=== PATIENT | female | born 1980 | race Caucasian/White ===

== ENCOUNTER 2018-09-04 10:55 | Inpatient (IN) | payer MEDICAID ==
[~2018-09-04 10:55] MED LIST: EPHEDrine 25 MG/5 ML SYG; PHENYLephrine (100 MCG/ML) 10ML SYG
[2018-09-04] MEDS ORDERED: LACTATED RINGER'S 1,000 ML IV (11:08)
[2018-09-04] MEDS ORDERED: CARBOPROST 250 MCG INJ IM ×3 (11:30→16:30)
[2018-09-04] MEDS ORDERED: OXYTOCIN 30 UNITS/LR 500 ML IV ×4 (11:30→16:30)
[2018-09-04] MEDS ORDERED: CEFAZOLIN 2 GM/50 ML (PMX) 50 ML IVPB ×2 (11:30)
[2018-09-04] MEDS ORDERED: METHYLERGONOVINE 0.2 MG INJ IM ×3 (11:30→16:30)
[2018-09-04] MEDS ORDERED: MISOPROSTOL 200 MCG TAB PR ×3 (11:30→16:30)
[2018-09-04 11:35] LABS: ADD MAN DIFF? NO
[2018-09-04] MEDS: LACTATED RINGER'S 1,000 ML IV ×2 (11:36→16:35)
[2018-09-04 11:43] LABS: BASOPHIL # 0.1 10^3/ul (0.0-0.1); BASOPHILS % 0.3 % (0.0-2.0); HEMATOCRIT 40.6 % (37.0-47.0); HEMOGLOBIN 14.3 g/dl (12.0-16.0); LYMPHOCYTES # 1.2 10^3/ul (0.8-2.9); LYMPHOCYTES % 6.2 % (15.0-51.0); MEAN CORPUSCULAR HEMOGLOBIN 31.8 pg (29.0-33.0); MEAN CORPUSCULAR HGB CONC 35.2 g/dl (32.0-37.0); MEAN CORPUSCULAR VOLUME 90.4 fl (82.0-101.0); MEAN PLATELET VOLUME 11.2 fl (7.4-10.4); MONOCYTE # 0.8 10^3/ul (0.3-0.9); NEUTROPHIL # 16.8 10^3/ul (1.6-7.5); NEUTROPHILS % 89.1 % (39.0-77.0); PLATELET COUNT 245 10^3/UL (140-415); RED BLOOD COUNT 4.49 10^6/ul (4.20-5.40); RED CELL DISTRIBUTION WIDTH 12.3 % (11.5-14.5)
[2018-09-04 11:43] LABS: WHITE BLOOD COUNT 18.8 10^3/ul (4.8-10.8)
[2018-09-04 11:56] LABS: INR 0.89; PROTIME 12.1 Sec (11.9-14.9); PT RATIO 0.9
[2018-09-04 11:57] LABS: PARTIAL THROMBOPLASTIN TIME 23.7 Sec (23.0-35.0)
[2018-09-04] MEDS ORDERED: morphine SULFATE/PF (10 MG/10 ML) INJ (12:02)
[2018-09-04] MEDS ORDERED: ONDANSETRON 4 MG INJ ×2 (12:13→15:39)
[2018-09-04] MEDS ORDERED: METOCLOPRAMIDE 10 MG INJ (12:14)
[2018-09-04] MEDS ORDERED: OXYTOCIN 10 UNIT INJ (12:20)
[2018-09-04] MEDS ORDERED: MIDAZOLAM 1 MG/ML 2 ML INJ (12:21)
[2018-09-04 12:27] LABS: HEPATITIS B SURFACE ANTIGEN NEGATIVE (NEGATIVE)
[2018-09-04] MEDS: OXYTOCIN 30 UNITS/LR 500 ML IV ×2 (13:05→18:51)
[2018-09-04 13:29] LABS: HIV 1&2 ANTIBODY NEGATIVE (NEGATIVE)
[2018-09-04] MEDS ORDERED: MEPERIDINE 25 MG INJ IV (13:30)
[2018-09-04] MEDS ORDERED: MIDAZOLAM 1 MG/ML 2 ML INJ IV (13:30)
[2018-09-04] MEDS ORDERED: DIPHENHYDRAMINE 50 MG INJ IV (13:30)
[2018-09-04 14:49] LABS: AMPHETAMINE/METHAMPHETAMINE Negative (NEGATIVE); BARBITURATES Negative (NEGATIVE); BENZODIAZEPINES Negative (NEGATIVE); CANNABINOIDS Negative (NEGATIVE); COCAINE Negative (NEGATIVE); OPIATES Negative (NEGATIVE)
[2018-09-04 15:23] LABS: RAPID PLASMA REAGIN NONREACTIVE (NR)
[2018-09-04] MEDS: KETOROLAC 30 MG INJ IV (16:14)
[2018-09-04] MEDS: ONDANSETRON 4 MG INJ IV (16:15)
[2018-09-04] MEDS ORDERED: KETOROLAC 30 MG INJ IV (16:30)
[2018-09-04] MEDS ORDERED: KETOROLAC 60 MG INJ IM (16:30)
[2018-09-04] MEDS ORDERED: KETOROLAC 15 MG INJ IV (16:30)
[2018-09-04] MEDS ORDERED: NACL 0.9% 3 ML SYG IV (16:30)
[2018-09-04] MEDS ORDERED: NALOXONE (0.4 MG/ML) INJ IV (16:30)
[2018-09-04] MEDS ORDERED: OXYCODONE/ACETAMINOPHEN (5/325) TAB PO (16:30)
[2018-09-04] MEDS ORDERED: IBUPROFEN 600 MG TAB PO (18:00)
[2018-09-04] MEDS: SENNA/DOCUSATE NA (8.6MG/50MG) TAB PO (21:00)
[2018-09-04] MEDS: CEFAZOLIN 2 GM/50 ML (PMX) 50 ML IVPB (21:29)
[2018-09-05] MEDS: KETOROLAC 30 MG INJ IV ×3 (00:05→12:05)
[2018-09-05] MEDS: CEFAZOLIN 2 GM/50 ML (PMX) 50 ML IVPB ×2 (04:51→13:33)
[2018-09-05] MEDS: LACTATED RINGER'S 1,000 ML IV (05:50)
[2018-09-05 08:09] LABS: ADD MAN DIFF? NO
[2018-09-05 08:18] LABS: BASOPHILS % 0.2 % (0.0-2.0); EOSINOPHILS % 0.1 % (0.0-7.0); HEMATOCRIT 32.7 % (37.0-47.0); HEMOGLOBIN 11.4 g/dl (12.0-16.0); LYMPHOCYTES # 1.4 10^3/ul (0.8-2.9); MEAN CORPUSCULAR HEMOGLOBIN 32.1 pg (29.0-33.0); MEAN CORPUSCULAR HGB CONC 34.9 g/dl (32.0-37.0); MEAN CORPUSCULAR VOLUME 92.1 fl (82.0-101.0); MEAN PLATELET VOLUME 11.7 fl (7.4-10.4); MONOCYTES % 5.3 % (0.0-11.0); NEUTROPHIL # 15.4 10^3/ul (1.6-7.5); PLATELET COUNT 189 10^3/UL (140-415); RED BLOOD COUNT 3.55 10^6/ul (4.20-5.40); RED CELL DISTRIBUTION WIDTH 12.3 % (11.5-14.5)
[2018-09-05 08:18] LABS: WHITE BLOOD COUNT 17.9 10^3/ul (4.8-10.8)
[2018-09-05] MEDS: SENNA/DOCUSATE NA (8.6MG/50MG) TAB PO ×2 (09:17→21:18)
[2018-09-05] MEDS: IBUPROFEN 600 MG TAB PO ×2 (17:32→23:58)
[2018-09-05 18:07] LABS: RHOGAM PROFILE 1 1
[2018-09-06] MEDS: IBUPROFEN 600 MG TAB PO ×4 (06:23→23:30)
[2018-09-06] MEDS: SENNA/DOCUSATE NA (8.6MG/50MG) TAB PO ×2 (09:38→21:13)
[2018-09-06 14:57] LABS: RUBELLA ANTIBODY - IGM <20.00 AU/mL
[2018-09-07] MEDS: IBUPROFEN 600 MG TAB PO ×2 (05:42→11:12)
[2018-09-07] MEDS: SENNA/DOCUSATE NA (8.6MG/50MG) TAB PO (08:42)
[2018-09-07] MEDS: DIPHTH/TET/ACEL PERTUSS (ADULT) 0.5 ML VIAL IM* (11:50)
== END 2018-09-07 14:05 | disposition home or self-care (01) | DRG 788 ==
LOC: OBT 10:55 → L-D 10:56 → OBT 11:04 → L-D 11:04 → PP1 16:26
PROVIDERS: Obstetrics & Gynecology
PROC: 10D00Z1 Extraction of Products of Conception, Low, Open Approach (ICD-10-PCS; principal; 2018-09-04)
DX: O34.219 Maternal care for unspecified type scar from previous cesarean delivery (principal); G89.18 Other acute postprocedural pain; Z3A.36 36 weeks gestation of pregnancy; Z37.0 Single live birth; Z23 Encounter for immunization
CPT/HCPCS: 80307; 85025; 85610; 85730; 86592; 86703; 86762; 86850; 86870; 86885; 86900; 86901; 87340; 90715; 99464